=== PATIENT | male | born 1960 | race Caucasian/White ===

== ENCOUNTER → 2017-10-06 10:35 | Outpatient (CLI) | payer MEDICAID ==
[2017-10-06 10:55] LABS: BASOPHILS 0.7 % (0-2); EOSINOPHILS 1.1 % (0-7); HEMATOCRIT 42.6 % (42.0-54.0); HEMOGLOBIN 14.4 g/dL (13.5-17.5); IMMATURE GRANULOCYTES 0.5 % (0-5); LYMPHOCYTES 22.8 % (15-50); MCH 31.5 pg (26.0-34.0); MCHC 33.8 g/dL (31.0-37.0); MCV 93.2 fL (80.0-100.0); MEAN PLATELET VOLUME 8.6 fL (7.4-10.4); MONOCYTES 9.9 % (2-11); PLATELET COUNT 311 10x3/uL (130-400); RBC 4.57 10x6/uL (4.20-6.10); RDW 13.9 % (11.5-14.5); WBC 9.5 10x3/uL (4.8-10.8)
== END | disposition home or self-care (01) ==
LOC: D.LAB 10:35
PROVIDERS: Podiatrist
DX: Z01.812 Encounter for preprocedural laboratory examination (principal)